=== PATIENT | male | born 2000 | race Caucasian/White ===

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

== ENCOUNTER 2022-04-29 13:12 | Emergency (ER) | payer BC ==
[2022-04-29] MEDS ORDERED: ONDANSETRON ODT 4 MG TAB PO STA (13:37)
[2022-04-29] MEDS ORDERED: ACETAMINOPHEN TAB 500 MG TAB PO STA (13:37)
[2022-04-29] MEDS ORDERED: MAG HYDROX/AL HYDROX/SIMETH 30 ML CUP PO STA (13:38)
--- NOTE | 2022-04-29 14:18 | ED ---
General Adult HPI - General Chief complaint: Fever Stated complaint: fever, chest pain Time Seen by Provider: 04/29/22 13:24 Source: patient, RN notes reviewed, old records reviewed Mode of arrival: ambulatory Limitations: no limitations - History of Present Illness Initial comments: Patient is a 21-year-old male who presents to the emergency Department complaining of substernal chest discomfort that radiates from the epigastrium to his throat. Has been having fevers as well as generalized body aches and feels sick. Minimal cough, intermittent nausea. Denies rhinorrhea. Denies sick contacts. Denies any other acute complaints at this time. No history of sudden onset in family members at a young age. Presents for further evaluation. - Related Data Home Medications Medication Instructions Recorded Confirmed EPINEPHrine (Auto Inject) [Epipen] 0.3 mg IM ONCE PRN 09/11/17 04/29/22 Doxycycline Hyclate 100 mg PO BID 04/29/22 04/29/22 Ibuprofen [Motrin Ib] 400 mg PO Q8H PRN 04/29/22 04/29/22 Pantoprazole [Protonix] 40 mg PO HS 04/29/22 04/29/22 Previous Rx's Medication Instructions Recorded Mag Hydrox/Al Hydrox/Simeth 30 ml PO BID PRN #500 ml 04/29/22 [Maalox] Ondansetron Odt [Zofran Odt] 4 mg PO Q8HR PRN 2 Days #6 tab 04/29/22 Allergies Allergy/AdvReac Type Severity Reaction Status Date / Time almond Allergy Anaphylaxis Verified 04/29/22 14:29 avocado Allergy Rash/Hives Verified 04/29/22 14:29 banana Allergy Rash/Hives Verified 04/29/22 14:29 egg Allergy Rash/Hives Verified 04/29/22 14:29 tree nut Allergy Anaphylaxis Verified 04/29/22 14:29 watermelon Allergy Swelling Verified 04/29/22 14:29 Review of Systems ROS Statement: Those systems with pertinent positive or pertinent negative responses have been documented in the HPI. Review of Systems: CONST: Denies fever EYES: Denies blurry vision ENT: Denies nasal congestion C/V: Endorses atypical chest pain RESP: Denies shortness of breath GI: Denies abdominal pain : Denies dysuria SKIN: Denies rash. MSK: Denies joint pain. NEURO: Denies headache ROS Other: All systems not noted in ROS Statement are negative. Past Medical History Past Medical History: No Reported History History of Any Multi-Drug Resistant Organisms: None Reported Past Surgical History: No Surgical Hx Reported Past Psychological History: No Psychological Hx Reported Smoking Status: Vaper Past Alcohol Use History: None Reported Past Drug Use History: None Reported General Exam - General Exam Comments Initial Comments: General: Appears in no acute distress. HEAD: Normal with no signs of head trauma. EYES: PERRLA, EOMI, conjunctiva normal, no discharge. ENT: Hearing grossly intact, normal oropharynx. RESPIRATORY: Clear breath sounds bilaterally. No wheezes, rales, or rhonchi. C/V: Regular rate and rhythm. S1 and S2 auscultated, no edema, peripheral pulses 2+ and intact throughout ABD: Abd is soft, nontender, nondistended EXT: Normal range of motion, no obvious deformity SKIN: No rashes or lesions observed on exposed skin. NEURO: Alert and oriented 4. Limitations: no limitations Course Vital Signs 04/29/22 04/29/22 04/29/22 13:15 14:20 14:46 Temperature 98.2 F 98.3 F Pulse Rate 85 Respiratory 16 16 Rate Blood Pressure 103/60 O2 Sat by Pulse 98 Oximetry 04/29/22 15:48 Temperature 98.2 F Pulse Rate 74 Respiratory 15 Rate Blood Pressure 111/62 O2 Sat by Pulse 100 Oximetry Medical Decision Making - Medical Decision Making Based on the patient's presentation and physical exam, his chest discomfort is likely secondary to acid reflux based on his symptoms, however I would like to obtain an EKG as well as chest x-ray. We will also obtain Covid and flu swabs. He'll be sent likely treatment. Patient was in agreement this plan. EKG shows no signs of acute ischemia. No change with her to prior EKGs in her system. Chest x-ray shows no acute cardiopulmonary process. Patient is negati ve for Covid and flu. On reevaluation, patient is feeling improved. Tolerating oral intake. Vital signs remained within normal limits. I believe it is safer to be discharged home. He likely has a viral syndrome with some acid reflux symptoms. Will be given ODT Zofran as well as Maalox for home. Patient's mother as well as patient in agreement with this plan. He'll be discharged home at this time. I will provide the patient with a prescription for ODT Zofran, Maalox. I instructed the patient to follow up with their PCP in the next 1-3 days. I explained that the patient should return to the emergency department if they experience any worsening symptoms. Strict return precautions were discussed with the patient. The patient expressed understanding of these instructions. I answered all questions that the patient had. The patient was discharged home in good condition with their prescriptions and follow up information. - Lab Data Lab Results 04/29/22 04/29/22 Range/Units 14:15 14:15 Coronavirus (PCR) Not Detected (Not Detectd) Influenza Type A RNA Not Detected (Not Detectd) Influenza Type B (PCR) Not Detected (Not Detectd) - EKG Data -: EKG Interpreted by Me EKG Comments: 12-lead Electrocardiogram Interpretation Note EKG was reviewed and interpreted by myself. 12-lead ECG performed at 1345 is interpreted by me as revealing normal sinus rhythm at a rate of 76 beats per minute. Right axis deviation. NE intervals 174 ms, QRS durations 170 ms, QTc is 405 ms.. There were no ST or T wave abnormalities to suggest myocardial ischemia or injury. R wave progression across the precordium was satisfactory. By my interpretation this EKG is non-diagnostic for acute ischemia. No real change when compared to prior EKGs. Disposition Clinical Impression: Viral syndrome Disposition: HOME SELF-CARE Condition: Good Instructions (If sedation given, give patient instructions): Viral Syndrome (ED) Prescriptions: Mag Hydrox/Al Hydrox/Simeth [Maalox] 30 ml PO BID PRN #500 ml PRN Reason: Dyspepsia Ondansetron Odt [Zofran Odt] 4 mg PO Q8HR PRN 2 Days #6 tab PRN Reason: Nausea Is patient prescribed a controlled substance at d/c from ED?: No Referrals: Helder Conner DO [Primary Care Provider] - 1-2 days Time of Disposition: 15:00
--- NOTE | 2022-04-29 14:45 | XR ---
EXAMINATION TYPE: XR chest 2V DATE OF EXAM: 04/29/2022 COMPARISON: 02/07/2018 HISTORY: Chest pain TECHNIQUE: 2 view FINDINGS: Heart and mediastinum are normal. Lungs are clear. Diaphragm is normal. Bony thorax is inta ct. IMPRESSION: Normal chest. No change.
[2022-04-29 15:50] VITALS: BP 111/62; PULSE 74; RESP 15; TEMP 98.2
== END 2022-04-29 15:50 | disposition home or self-care (01) ==
LOC: EC 13:12
DX: B34.9 Viral infection, unspecified (principal); F17.290 Nicotine dependence, other tobacco product, uncomplicated; Z91.018 Allergy to other foods; Z20.822 Contact with and (suspected) exposure to COVID-19
CPT/HCPCS: 71046; 87502; 87635; 93005; 99284

== ENCOUNTER 2022-04-30 13:45 | Emergency (ER) | payer BC ==
[2022-04-30] MEDS ORDERED: PANTOPRAZOLE 40 MG/10 ML VIAL IVP STA (16:08)
[2022-04-30] MEDS ORDERED: KETOROLAC 15 MG/ML 1 ML VIAL IVP STA (16:08)
[2022-04-30] MEDS ORDERED: SODIUM CHLORIDE 0.9% 1,000 ML IV STA (16:08)
--- NOTE | 2022-04-30 16:15 | ED ---
Abdominal Pain HPI - General Chief Complaint: Abdominal Pain Stated Complaint: Recheck-sent by Dr. Conner Time Seen by Provider: 04/30/22 15:58 Source: patient, family, RN notes reviewed, old records reviewed Mode of arrival: ambulatory Limitations: no limitations - History of Present Illness Initial Comments: Well-appearing 21-year-old male presents to the emergency room with 4 days of epigastric pain with nausea and vomiting. Patient states he is unable to keep anything down for past couple days. Symptoms started about 4 days ago with dysuria and he was treated for STI at clinic. He was also prescribed doxycycline at that time but stopped taking it when his symptoms of epigastric pain worsened and clinic states his cultures were all negative. Dysuria has since resolved. Patient states that he was seen yesterday for the similar symptoms here in the ER, had viral swabs, ekg and xr done all normal. He was directed to f/u with his PCP. He did call his primary care doctor today as he was scheduled to see him at 4 PM but was directed to come to the emergency room for evaluation and possible scope. Patient does have a history of GERD was prescribed Protonix in the past but does not take it. He does smoke marijuana occasionally. -: days(s) (4) Location: epigastric Radiation: none Severity scale (1-10): 10 Improves With: other (ripping) Associated Symptoms: nausea, vomiting, fever - Related Data Home Medications Medication Instructions Recorded Confirmed EPINEPHrine (Auto Inject) [Epipen] 0.3 mg IM ONCE PRN 09/11/17 04/30/22 Pantoprazole [Protonix] 40 mg PO HS 04/29/22 04/30/22 Allergies Allergy/AdvReac Type Severity Reaction Status Date / Time almond Allergy Anaphylaxis Verified 04/30/22 17:27 amoxicillin Allergy Nausea & Verified 04/30/22 17:27 Vomiting avocado Allergy Rash/Hives Verified 04/30/22 17:27 banana Allergy Rash/Hives Verified 04/30/22 17:27 egg Allergy Rash/Hives Verified 04/30/22 17:27 tree nut Allergy Anaphylaxis Verified 04/30/22 17:27 watermelon Allergy Swelling Verified 04/30/22 17:27 Review of Systems ROS Statement: Those systems with pertinent positive or pertinent negative responses have been documented in the HPI. ROS Other: All systems not noted in ROS Statement are negative. Past Medical History Past Medical History: GERD/Reflux History of Any Multi-Drug Resistant Organisms: None Reported Past Surgical History: No Surgical Hx Reported Past Psychological History: No Psychological Hx Reported Smoking Status: Vaper Past Alcohol Use History: None Reported Past Drug Use History: None Reported General Exam Limitations: no limitations General appearance: alert, in no apparent distress Head exam: Present: atraumatic Eye exam: Present: normal appearance. Absent: scleral icterus, conjunctival injection, periorbital swelling ENT exam: Present: mucous membranes moist Neck exam: Present: normal inspection, full ROM. Absent: tenderness, meningismus, lymphadenopathy Respiratory exam: Present: normal lung sounds bilaterally. Absent: respiratory distress, accessory muscle use Cardiovascular Exam: Present: regular rate, normal rhythm GI/Abdominal exam: Present: soft. Absent: distended, tenderness, guarding, rebound, rigid Back exam: Present: normal inspection, full ROM. Absent: tenderness, CVA tenderness (R), CVA tenderness (L), rash noted Neurological exam: Present: alert, oriented X3, normal gait Psychiatric exam: Present: normal affect, normal mood Skin exam: Present: warm, dry, intact, normal color. Absent: cyanosis, diaphoretic, petechiae, pallor Course Vital Signs 04/30/22 04/30/22 04/30/22 15:41 16:35 18:11 Temperature 98.5 F 98 F Pulse Rate 94 98 83 Respiratory 20 18 18 Rate Blood Pressure 110/53 133/82 112/78 O2 Sat by Pulse 98 96 97 Oximetry Medical Decision Making - Medical Decision Making Chest x-ray done yesterday shows normal chest, lungs are clear. EKG done yesterday shows sinus rhythm with a right axis deviation. Viable swabs performed yesterday negative for coronavirus or influenza. CBC and electrolytes are unremarkable. UA shows 15 ketones, no evidence of infection. Patient was given 1 L of normal saline. Patient states that he was tested for STI's and came back negative cultures. Abdomen is soft and nontender. Patient is afebrile and vital signs are stable. Patient states he does have pain with palpation over the epigastrium. This is likely GERD and he states he has not been taking his prescribed Protonix. He was instructed to return to the emergency room with any right lower quadrant pain, fevers or persistent nausea and vomiting. Patient was discharged home with mom, directed to follow up with primary care doctor and GI. Case discussed with Dr. Phillips. - Lab Data Result diagrams: 04/30/22 16:27 04/30/22 16:27 Lab Results 04/30/22 04/30/22 04/30/22 Range/Units 16:27 16:27 16:27 WBC 8.9 (4.0-11.0) k/uL RBC 4.76 (4.30-5.90) m/uL Hgb 15.4 (13.0-17.5) gm/dL Hct 45.4 (39.0-53.0) % MCV 95.3 (80.0-100.0) fL MCH 32.4 (25.0-35.0) pg MCHC 34.0 (31.0-37.0) g/dL RDW 11.6 (11.5-15.5) % Plt Count 198 (150-450) k/uL MPV 8.0 Neutrophils % 73 % Lymphocytes % 12 % Monocytes % 10 % Eosinophils % 1 % Basophils % 1 % Neutrophils # 6.6 (1.3-7.7) k/uL Lymphocytes # 1.1 (1.0-4.8) k/uL Monocytes # 0.9 (0-1.0) k/uL Eosinophils # 0.0 (0-0.7) k/uL Basophils # 0.1 (0-0.2) k/uL Sodium 139 (137-145) mmol/L Potassium 4.1 (3.5-5.1) mmol/L Chloride 100 (98-107) mmol/L Carbon Dioxide 26 (22-30) mmol/L Anion Gap 13 mmol/L BUN 13 (9-20) mg/dL Creatinine 0.95 (0.66-1.25) mg/dL Est GFR (CKD-EPI)AfAm >90 (>60 ml/min/1.73 sqM) Est GFR (CKD-EPI)NonAf >90 (>60 ml/min/1.73 sqM) Glucose 83 (74-99) mg/dL Plasma Lactic Acid Michel (0.7-2.0) mmol/L Calcium 9.4 (8.4-10.2) mg/dL Total Bilirubin 0.4 (0.2-1.3) mg/dL AST 23 (17-59) U/L ALT 17 (4-49) U/L Alkaline Phosphatase 93 (38-126) U/L Total Protein 7.5 (6.3-8.2) g/dL Albumin 4.7 (3.5-5.0) g/dL Amylase 43 (30-110) U/L Lipase 26 (23-300) U/L Urine Color Yellow Urine Appearance Cloudy (Clear) Urine pH 6.0 (5.0-8.0) Ur Specific [place] 1.029 (1.001-1.035) Urine Protein 1+ H (Negative) Urine Glucose (UA) Negative (Negative) Urine Ketones 3+ H (Negative) Urine Blood Negative (Negative) Urine Nitrite Negative (Negative) Urine Bilirubin Negative (Negative) Urine Urobilinogen <2.0 (<2.0) mg/dL Ur Leukocyte Esterase Negative (Negative) Urine RBC 1 (0-5) /hpf Urine WBC 5 (0-5) /hpf Urine Mucus Many H (None) /hpf 04/30/22 Range/Units 16:27 WBC (4.0-11.0) k/uL RBC (4.30-5.90) m/uL Hgb (13.0-17.5) gm/dL Hct (39.0-53.0) % MCV (80.0-100.0) fL MCH (25.0-35.0) pg MCHC (31.0-37.0) g/dL RDW (11.5-15.5) % Plt Count (150-450) k/uL MPV Neutrophils % % Lymphocytes % % Monocytes % % Eosinophils % % Basophils % % Neutrophils # (1.3-7.7) k/uL Lymphocytes # (1.0-4.8) k/uL Monocytes # (0-1.0) k/uL Eosinophils # (0-0.7) k/uL Basophils # (0-0.2) k/uL Sodium (137-145) mmol/L Potassium (3.5-5.1) mmol/L Chloride (98-107) mmol/L Carbon Dioxide (22-30) mmol/L Anion Gap mmol/L BUN (9-20) mg/dL Creatinine (0.66-1.25) mg/dL Est GFR (CKD-EPI)AfAm (>60 ml/min/1.73 sqM) Est GFR (CKD-EPI)NonAf (>60 ml/min/1.73 sqM) Glucose (74-99) mg/dL Plasma Lactic Acid Michel 0.9 (0.7-2.0) mmol/L Calcium (8.4-10.2) mg/dL Total Bilirubin (0.2-1.3) mg/dL AST (17-59) U/L ALT (4-49) U/L Alkaline Phosphatase (38-126) U/L Total Protein (6.3-8.2) g/dL Albumin (3.5-5.0) g/dL Amylase (30-110) U/L Lipase (23-300) U/L Urine Color Urine Appearance (Clear) Urine pH (5.0-8.0) Ur Specific [place] (1.001-1.035) Urine Protein (Negative) Urine Glucose (UA) (Negative) Urine Ketones (Negative) Urine Blood (Negative) Urine Nitrite (Negative) Urine Bilirubin (Negative) Urine Urobilinogen (<2.0) mg/dL Ur Leukocyte Esterase (Negative) Urine RBC (0-5) /hpf Urine WBC (0-5) /hpf Urine Mucus (None) /hpf Disposition Clinical Impression: Epigastric pain, Dehydration Disposition: HOME SELF-CARE Condition: Good Additional Instructions: Increase your fluid intake. Continue taking your Protonix as prescribed. Follow-up with the primary care doctor this week and gastroenterology as needed. Return to the emergency room with a new or concerning symptoms including persistent nausea vomiting, or increased abdominal pain especially right lower quadrant. Is patient prescribed a controlled substance at d/c from ED?: No Referrals: Helder Conner DO [Primary Care Provider] - 1-2 days Carol Ann Anne MD [STAFF PHYSICIAN] - 1-2 days Time of Disposition: 17:15
[2022-04-30 16:36] VITALS: RESP 18
[2022-04-30 16:43] LABS: Basophils # (A) 0.1 k/uL (0-0.2); Basophils % (A) 1 %; Eosinophils % (A) 1 %; HCT 45.4 % (39.0-53.0); HGB 15.4 gm/dL (13.0-17.5); Lymphocytes # (A) 1.1 k/uL (1.0-4.8); Lymphocytes % (A) 12 %; MCH 32.4 pg (25.0-35.0); MCV 95.3 fL (80.0-100.0); Monocytes # (A) 0.9 k/uL (0-1.0); Monocytes % (A) 10 %; Neutrophils # (A) 6.6 k/uL (1.3-7.7); Neutrophils % (A) 73 %; Platelet Count 198 k/uL (150-450); RBC 4.76 m/uL (4.30-5.90); RDW 11.6 % (11.5-15.5); WBC 8.9 k/uL (4.0-11.0)
[2022-04-30 16:51] LABS: Appearance,Urine Cloudy (Clear); Bilirubin,Urine Negative (Negative); Blood,Urine Negative (Negative); Color,Urine Yellow; Glucose,Urine (UA) Negative (Negative); Ketones,Urine 3+ (Negative); Leukocyte Esterase,Urine Negative (Negative); Mucus,Urine Many /hpf; Nitrite,Urine Negative (Negative); Protein,Urine 1+ (Negative); RBC,Urine 1 /hpf (0-5); Specific Gravity,Urine 1.029 (1.001-1.035); Urobilinogen,Urine <2.0 mg/dL (<2.0); WBC,Urine 5 /hpf (0-5)
[2022-04-30 16:52] LABS: ALT 17 U/L (4-49); AST 23 U/L (17-59); African American GFR (CKD) >90 (>60 ml/min/1.73 sqM); Albumin 4.7 g/dL (3.5-5.0); Alkaline Phosphatase 93 U/L (38-126); Amylase 43 U/L (30-110); Anion Gap 13 mmol/L; Blood Urea Nitrogen 13 mg/dL (9-20); Calcium 9.4 mg/dL (8.4-10.2); Carbon Dioxide 26 mmol/L (22-30); Chloride 100 mmol/L (98-107); Glucose 83 mg/dL (74-99); Lipase 26 U/L (23-300); Non-African American GFR(CKD) >90 (>60 ml/min/1.73 sqM); Potassium 4.1 mmol/L (3.5-5.1); Sodium 139 mmol/L (137-145); Total Bilirubin 0.4 mg/dL (0.2-1.3); Total Protein 7.5 g/dL (6.3-8.2)
[2022-04-30 18:13] VITALS: BP 112/78; PULSE 83; TEMP 98
== END 2022-04-30 18:24 | disposition home or self-care (01) ==
LOC: EC 13:45
DX: E86.0 Dehydration (principal); R10.13 Epigastric pain; K21.9 Gastro-esophageal reflux disease without esophagitis; F17.290 Nicotine dependence, other tobacco product, uncomplicated
CPT/HCPCS: 36415; 80053; 82150; 83605; 83690; 85025; 81001; 99284; 96374; 96375; 96361; J1885; C9113